=== PATIENT | male | born 1940 | race Caucasian/White ===

== ENCOUNTER 2020-09-01 09:32 | Emergency (ER) | payer MEDICARE, OTHER ==
[~2020-09-01] VITALS: Ht 180.3 cm; Wt 78.0 kg
[~2020-09-01 09:32] MED LIST: AMLO-211 PO; ASPI325T17 PO; ATOR40TA78 PO; BUPR1PAT7 TD; CHOL2000 PO; CYAN100063 PO; FOLI-17 PO; HYDR50TA99 PO; LISI1TAB39 PO; MORP-52 PO; NAPR-850 PO; PANT40TA6 PO
[2020-09-01] MEDS ORDERED: FAMOTIDINE 20 MG/2 ML IV ONE (10:00)
[2020-09-01] MEDS ORDERED: ONDANSETRON 2MG/ML, 2ML IVPush ONE (10:00)
[2020-09-01] MEDS ORDERED: SODIUM CHLORIDE FLUSH 10ML SYR IVF ONE (10:00)
[2020-09-01] MEDS ORDERED: SODIUM CHLORIDE 0.9% 1,000ML IVBOLUS ONE (10:00)
[2020-09-01] MEDS ORDERED: ONDANSETRON 2MG/ML, 2ML ONE (10:03)
[2020-09-01] MEDS ORDERED: FAMOTIDINE 20 MG/2 ML ONE (10:04)
[2020-09-01 10:45] LABS: ALANINE AMINOTRANSFERASE 66 U/L (12-78); ALBUMIN 3.5 g/dL (3.4-5.0); ANION GAP 10 mmol/L (5-15); CALCIUM 8.8 mg/dL (8.5-10.1); CHLORIDE 106 mmol/L (98-107)
[2020-09-01 10:47] LABS: BASOPHILS % (AUTO) 0 % (0-1); EOSINOPHILS % (AUTO) 0 % (1-7); LYMPHOCYTES % (AUTO) 13 % (22-44); MEAN CORPUSCULAR HEMOGLOBIN 33.4 pg (27.5-34.5); MEAN PLATELET VOLUME 7.4 fL (7.4-10.4); MONOCYTES % (AUTO) 12 % (2-9); NEUTROPHILS % (AUTO) 74 % (42-75); PLATELET COUNT 299 x10^3/uL (130-400); RED BLOOD COUNT 4.58 x10^6/uL (4.38-5.82); RED CELL DISTRIBUTION WIDTH 13.6 % (9.4-14.8)
[2020-09-01 10:48] LABS: ALKALINE PHOSPHATASE 161 U/L (45-117); BILIRUBIN,TOTAL 1.1 mg/dL (0.2-1.0); CREATININE 0.98 mg/dL (0.7-1.3)
[2020-09-01 10:53] LABS: MD NO
[2020-09-01] MEDS ORDERED: OMNIPAQUE 350 MG/ML, 100ML BOTTLE ONE (11:05)
--- NOTE | 2020-09-01 12:29 | NUR ---
H20 PROVIDED. PT DENIES N/V AT THIS TIME.
[2020-09-01 13:38] LABS: MICROSCOPIC INDICATED
--- NOTE | 2020-09-01 14:03 | NUR ---
PT'S DAUGHTER CALLED [employer] INTERN PHONE, DISTRESSED THAT PT MAY BE DISCHARGED. DISCUSSED CONCERNS C/ PT'S DAUGHTER. DR. ANN NOW SPEAKING WITH PT'S DAUGHTER, DONNA, TO DISCUSS CONCERNS.
[2020-09-01 14:06] VITALS: BP 142/88
== END 2020-09-01 14:49 | disposition home or self-care (01) ==
LOC: ED 10:01
DX: K29.00 Acute gastritis without bleeding (principal); G89.29 Other chronic pain; R10.11 Right upper quadrant pain; R10.13 Epigastric pain; R11.2 Nausea with vomiting, unspecified; I10 Essential (primary) hypertension; E78.5 Hyperlipidemia, unspecified
CPT/HCPCS: 36415; 74177; 80053; 81001; 83605; 83690; 85025; 87077; 87086; 93005; 96361; 96374; 96375; 99285; J2405; J7030; Q9967; 87186